=== PATIENT | male | born 1965 | race Caucasian/White ===

== ENCOUNTER 2018-11-11 21:14 | Inpatient (IN) | payer MEDICAID ==
[~2018-11-11] VITALS: Ht 175.3 cm; Wt 77.2 kg
--- NOTE | 2018-11-11 21:25 | NUR ---
Dr. Jennings at bedside for MSE.
--- NOTE | 2018-11-11 21:33 | NUR ---
Xray at bedside.
[2018-11-11] MEDS ORDERED: LOSARTAN PO (21:34)
[2018-11-11 21:38] LABS: BASOPHILS # (AUTO) 0.1 K/uL (0.0-8.0); BASOPHILS % (AUTO) 0.5 % (0.0-2.0); EOSINOPHILS % (AUTO) 0.2 % (0.0-7.0); HEMATOCRIT 45.5 % (36.7-47.1); HEMOGLOBIN 15.8 g/dL (12.5-16.3); LYMPHOCYTES # (AUTO) 1.5 K/uL (20.0-40.0); LYMPHOCYTES % (AUTO) 10.7 % (20.5-51.5); MEAN CORPUSCULAR HEMOGLOBIN 29.8 uug (23.8-33.4); MEAN CORPUSCULAR HGB CONC 35 g/dL (32.5-36.3); MEAN CORPUSCULAR VOLUME 85.7 fL (73.0-96.2); MONOCYTES # (AUTO) 1.1 K/uL (2.0-10.0); NEUTROPHILS # (AUTO) 10.9 K/uL (1.8-8.9); NEUTROPHILS % (AUTO) 80.6 % (38.5-71.5); PLATELET COUNT (AUTO) 216 K/uL (152-348); RED BLOOD CELL COUNT(AUTO) 5.31 MIL/uL (4.06-5.63); WHITE BLOOD COUNT (AUTO) 13.5 K/uL (3.6-10.2)
[2018-11-11] MEDS ORDERED: LORAZEPAM 2 MG/1 ML VIAL ONE (21:38)
[2018-11-11] MEDS ORDERED: IV NORMAL SALINE 1000 ML BAG IV ONE (21:45)
[2018-11-11] MEDS ORDERED: LORAZEPAM 2 MG/1 ML VIAL IV ONE (21:45)
[2018-11-11 21:46] LABS: CREATININE 0.9 mg/dL (0.6-1.3); POTASSIUM 3.5 mmol/L (3.5-5.1)
[2018-11-11 21:49] LABS: ETHANOL < 3 MG/DL (0-0)
[2018-11-11] MEDS ORDERED: PANTOPRAZOLE SODIUM IV 80 MG in IV DEXTROSE 5% 100 ML IV ONE (22:00)
[2018-11-11] MEDS ORDERED: PANTOPRAZOLE SODIUM IV 80 MG in IV DEXTROSE 5% 500 ML IV ONE (22:00)
--- NOTE | 2018-11-11 22:00 | NUR ---
UNABLE TO GET COMPLETE MEDICATION LIST DUE TO PATIENT UNABLE TO RECALL NAME AND DOSAGES AT THIS TIME
[2018-11-11 22:02] LABS: ALANINE AMINOTRANSFERASE 49 U/L (16-63); ALKALINE PHOSPHATASE 104 U/L (50-136); ASPARTATE AMINOTRANSFERASE 41 U/L (15-37); BILIRUBIN,DIRECT 0.4 mg/dL (0.0-0.2); BILIRUBIN,TOTAL 1.1 mg/dL (0.2-1.0); LIPASE 507 U/L (73-393); TOTAL PROTEIN, SERUM 7.4 g/dL (6.4-8.2)
[2018-11-11] MEDS ORDERED: PANTOPRAZOLE SODIUM 40 MG VIAL ONE (22:03)
--- NOTE | 2018-11-11 22:23 | NUR ---
PAGED EPPIC PANEL. WAITING FOR DEVONTE KULKARNI MOLD REPAIR TECHNICIAN TO CALL BACK
--- NOTE | 2018-11-11 22:46 | NUR ---
Dr. Jennings on panel call with Pasquale Reina NP. Pt accepted for admission to [facility], diagnosis: chest pain, pancreatitis, and gi bleed.
--- NOTE | 2018-11-11 22:50 | NUR ---
Report given to Eneida SAM Tele.
--- NOTE | 2018-11-11 22:53 | NUR ---
Pasquale Reina SECURITY SHIFT MANAGER at bedside.
[2018-11-11] MEDS ORDERED: IV NS 1000 ML 1,000 ML IV PRN (23:17)
[2018-11-11 23:23] VITALS: BP 140/87
[2018-11-11] MEDS ORDERED: Z GUARD REMEDY PASTE 57 GM TUBE TOP PRN (23:30)
[2018-11-11] MEDS ORDERED: MAGNESIUM HYDROXIDE 30 ML LIQUID UDC PO PRN (23:30)
[2018-11-11] MEDS ORDERED: MORPHINE SULFATE 2 MG/1 ML DISP.SYRIN IV PRN (23:30)
[2018-11-11] MEDS ORDERED: ONDANSETRON 4 MG/2 ML VIAL IV PRN (23:30)
[2018-11-11] MEDS ORDERED: ACETAMINOPHEN 325 MG TABLET PO PRN (23:30)
[2018-11-11] MEDS ORDERED: ZOLPIDEM 5 MG TABLET PO PRN (23:30)
[2018-11-11] MEDS ORDERED: hydrALAZINE HCL 25 MG TABLET PO PRN (23:45)
--- NOTE | 2018-11-11 23:45 | NUR ---
PATIENT ADMITTED TO FLOOR VIA GURNEY. PATIENT IS A/O X4. DENIES CHEST PAIN OR DISCOMFORT. PLACED ON TELE ORDERED, SR. NO RESP. DISTRESS NOTED. VS WNL. H/L INTACT AND PATENT NOTED TO RIGHT AC. ORIENTED PATIENT TO ROOM AND CALL LIGHT. ALL NEEDS ATTENDED. WILL CONTINUE TO MONITOR AND ASSESS.
[2018-11-11] MEDS: IV NS 1000 ML 1,000 ML IV PRN (23:57)
[2018-11-12 03:52] VITALS: BP 135/86
--- NOTE | 2018-11-12 06:38 | NUR ---
PATIENT ASLEEP IN BED. EASILY AROUSABLE. VSS. ON TELE. DENIES PAIN. IVF INFUSING WELL. CALL LIGHT IN REACH. ALL NEEDS ATTENDED. WILL CONTINUE TO MONITOR.
[2018-11-12 06:43] LABS: BASOPHILS # (AUTO) 0.1 K/uL (0.0-8.0); BASOPHILS % (AUTO) 0.7 % (0.0-2.0); EOSINOPHILS # (AUTO) 0.1 K/uL (0.0-0.7); EOSINOPHILS % (AUTO) 0.7 % (0.0-7.0); HEMATOCRIT 42.5 % (36.7-47.1); HEMOGLOBIN 14.7 g/dL (12.5-16.3); LYMPHOCYTES # (AUTO) 1.2 K/uL (20.0-40.0); MEAN CORPUSCULAR HGB CONC 35 g/dL (32.5-36.3); MEAN CORPUSCULAR VOLUME 86.8 fL (73.0-96.2); MONOCYTES # (AUTO) 0.6 K/uL (2.0-10.0); MONOCYTES % (AUTO) 7.9 % (0.0-11.0); NEUTROPHILS # (AUTO) 5.8 K/uL (1.8-8.9); NEUTROPHILS % (AUTO) 75.7 % (38.5-71.5); PLATELET COUNT (AUTO) 173 K/uL (152-348); WHITE BLOOD COUNT (AUTO) 7.7 K/uL (3.6-10.2)
[2018-11-12 07:01] LABS: PHOSPHOROUS 3.1 mg/dL (2.5-4.9); POTASSIUM 3.4 mmol/L (3.5-5.1); THYROID STIMULATING HORMONE 1.436 mIU/mL (0.358-3.740)
[2018-11-12] MEDS ORDERED: LEXAPRO PO (07:08)
[2018-11-12] MEDS ORDERED: IBUP-1955 PO (07:08)
[2018-11-12] MEDS ORDERED: SONATA PO (07:08)
[2018-11-12] MEDS ORDERED: VENL75TA4 PO (07:08)
[2018-11-12] MEDS ORDERED: GABA300C PO (07:08)
[2018-11-12] MEDS ORDERED: ASPI81TA31 PO (07:08)
[2018-11-12] MEDS ORDERED: ATEN50TA PO (07:08)
[2018-11-12] MEDS ORDERED: LOSA1TAB36 PO (07:08)
[2018-11-12] MEDS: IV NS 1000 ML 1,000 ML IV PRN (07:19)
[2018-11-12] MEDS ORDERED: LOSARTAN POTASSIUM 25 MG TABLET PO SCH (09:00)
[2018-11-12 09:24] LABS: BILIRUBIN,DIRECT 0.3 mg/dL (0.0-0.2); BILIRUBIN,TOTAL 1.1 mg/dL (0.2-1.0); TOTAL PROTEIN, SERUM 6.2 g/dL (6.4-8.2)
[2018-11-12] MEDS ORDERED: PANTOPRAZOLE SODIUM 40 MG VIAL IV SCH (10:00)
[2018-11-12] MEDS ORDERED: POTASSIUM CHLORIDE 50 ML IV SCH (11:15)
[2018-11-12 11:17] VITALS: BP 139/94
[2018-11-12] MEDS ORDERED: POTASSIUM CHLORIDE 20 MEQ TAB.PRT.SR PO ONE (11:30)
[2018-11-12] MEDS ORDERED: PANT40TA2 PO (14:47)
[2018-11-12 15:11] VITALS: BP 144/94
--- NOTE | 2018-11-12 15:22 | NUR ---
d/c orders received noted and carried out,d/c heplock per md orders,d/c instruction and education given to the pt,pt verbalized understanding all the instruction and said he will follow up with his pcp,pt left the facility via walking from the hospital in stable condition
--- NOTE | 2018-11-13 06:16 | NUR ---
INFORMATION SENT: CHRIS,UR-11/12,PROGRESS NOTES 4-4,DISCHARGE SUMMARY INSURANCE NAME: [facility] FAX NUMBER: [phone] / [phone] FAX SENT
== END 2018-11-12 15:20 | disposition home or self-care (01) | DRG 241 ==
LOC: ER 21:14 → TELE3 23:01
PROVIDERS: ADMIT Nurse Practitioner Acute Care; ATTEND Nurse Practitioner Acute Care
DX: K29.71 Gastritis, unspecified, with bleeding (principal); K85.90 Acute pancreatitis without necrosis or infection, unspecified; E44.0 Moderate protein-calorie malnutrition; F10.20 Alcohol dependence, uncomplicated; Y90.0 Blood alcohol level of less than 20 mg/100 ml; Z68.25 Body mass index [BMI] 25.0-25.9, adult; G89.29 Other chronic pain; M54.5 Low back pain; G47.00 Insomnia, unspecified; Z91.81 History of falling; E87.6 Hypokalemia; I10 Essential (primary) hypertension; Z79.82 Long term (current) use of aspirin; Z79.899 Other long term (current) drug therapy; K22.4 Dyskinesia of esophagus; F32.9 Major depressive disorder, single episode, unspecified; Z87.891 Personal history of nicotine dependence; K21.9 Gastro-esophageal reflux disease without esophagitis; K27.4 Chronic or unspecified peptic ulcer, site unspecified, with hemorrhage
CPT/HCPCS: 36415; 70030-TC; 71045; 76705; 83690; 83735; 84100; 84443; 85025; 86850; 86900; 86901; 93005; 93307; A4663; C9113; G0378; G0480; J2060; J7030; J7060